=== PATIENT | male | born 1965 | race Caucasian/White ===

== ENCOUNTER → 2017-11-20 09:35 | Outpatient (CLI) | payer OTHER, SELFPAY ==
[2017-11-20 15:03] LABS: Absolute Lymphocyte Count 1.94 X10^3/ul (0.83-4.51); Absolute Neutrophil Count 2.5 X10^3/uL (2.0-7.7); Basophil# 0.02 X10^3/uL; Basophil% 0.4 % (0-1); Eosinophil# 0.08 X10^3/uL; Eosinophils% 1.6 % (0-5); Hematocrit 46.7 % (40-54); Hemoglobin 15.8 g/dl (13.0-16.5); Lymphocyte # 1.94 X10^3/ul (4.0); Lymphocyte % 39.2 % (19-41); Mean Corp Hgb Conc 33.8 g/gl (32-36); Mean Corpuscular Volume 88.6 fL (80-94); Mean Platelet Vol. 10.6 fl (6.2-12.0); Monocyte# 0.38 X10^3/uL; Monocyte% 7.7 % (0-10); Neutrophil # 2.53 X10^3/uL (2.7-7.7); Neutrophil % 51.1 % (47-70); POSITIVE COUNT NO; POSITIVE DIFFERENTIAL NO; POSITIVE MORPHOLOGY NO; Platelet Count 145 K/mm3 (150-450); RBC Distribution Width SD 45.5 fl (35.1-43.9); Red Blood Count 5.27 M/mm3 (4.6-6.2)
[2017-11-20 15:19] LABS: ALB/GLOB Ratio 1.3 RATIO (0.9-2.4); AST(SGOT) 17 U/L (15-37); Alanine Aminotransfer ALT/SGPT 33 U/L (16-61); Albumin, Serum 3.8 g/dL (3.2-5.0); Alkaline Phosphatase 45 U/L (45-117); Anion Gap 7 (5-15); BUN 17 mg/dL (7-18); BUN/Creat Ratio 13.2 RATIO (10-20); Calcium,Total 8.6 mg/dL (8.5-10.1); Chloride 107 mmol/L (98-107); Creatinine, Serum 1.29 mg/dL (0.70-1.30); EST Glomerular Filtration Rate 62 mL/min (>60); Est Glom Filt Rate - Afr Amer 75 mL/min (>60); Glucose 146 mg/dL (74-106); Potassium 3.9 mmol/L (3.5-5.1); Protein, Total 6.8 g/dL (6.4-8.2); Sodium Level 143 mmol/L (136-145); Thyroid Stim Hormone (TSH) 0.61 uIU/mL (0.358-3.74)
[2017-11-20 18:02] LABS: Hemoglobin A1c 5.6 % (4.2-6.3)
[2017-11-22 08:32] LABS: Hep C Antibodies <0.1 s/co ratio (0.0-0.9)
== END ==
PROVIDERS: Visit Provider Family Medicine Geriatric Medicine
DX: R53.83 Other fatigue (principal); E16.2 Hypoglycemia, unspecified; Z13.89 Encounter for screening for other disorder
CPT/HCPCS: 36415; 80053; 83036; 84443; 85025; 86803

== ENCOUNTER → 2018-01-12 16:24 | Outpatient (CLI) | payer SELFPAY ==
--- NOTE | 2018-01-12 16:24 | DT_ITS ---
This patient was seen during an EMR downtime January 12, 2018 - January 19, 2018. This patient may have a combination of paper and electronic documentation or all paper documentation. All documentation is viewable within the e-chart portion of [facility] for each patient visit.
--- NOTE | 2018-01-12 16:50 | RAD_ITS ---
STUDY: X-RAY - ORBITS REASON FOR EXAM: Male, 52 years old. This study is being performed as a clearance examination for exclusion of orbital metal, prior to the performance of an MRI examination. TECHNIQUE: 2 view(s) of the orbits were obtained. COMPARISON: None. FINDINGS: Normal bilateral orbits without a metallic orbital foreign body. Normal visualized facial bones. There is a 1.2 cm density appearing to be in the left frontal sinus, suggesting a sinolith. The soft tissue structures are unremarkable. RAD/Orbits for Foreign Body IMPRESSION: No demonstrated metallic orbital foreign body. The patient is cleared for an MRI examination. There is a 1.2 cm density appearing to be in the left frontal sinus, suggesting a sinolith. Electronically Signed: Michelle Lucia MD at 14:04 EDT , Service support ,
--- NOTE | 2018-01-12 17:30 | MRI_ITS ---
STUDY: MRI RIGHT SHOULDER REASON FOR EXAM: Male, 52 years old. Pain, limited range of motion TECHNIQUE: Standardized fat and water weighted pulse sequences were obtained in all 3 orthogonal planes. COMPARISON: None. FINDINGS: There is slight thickening with abnormal signal at the supraspinatus and subscapularis tendons (image 15, 14, 13, 12/20 coronal proton density fat sat, T2 fat sat, 13, 14, 13/22 axial proton density fat sat). There is a partial interstitial tear at the subscapularis tendon insertion. There is tear at the posterior inferior glenoid labrum (image 15, 16/22 axial proton density fat sat). There is chronic deformity at the posterior inferior glenoid labrum with mild subcortical cyst formation (image 13, 14, 15/22 axial proton density fat sat, T2). There are mild degenerative changes of the acromioclavicular joint (image 16/20 coronal T2 fat sat). Normal humeral head and visualized proximal humerus. Normal biceps labral complex. Normal intracapsular long biceps tendon. Normal capsulo- ligamentous complex. Normal rotator interval. Normal visualized coracohumeral and coracoacromial ligaments. Normal quadrilateral space. Normal axillary space. Normal deltoid muscle. Normal trapezius muscle. MRI/Upper Ext Joint Only(Routine) IMPRESSION: Rotator cuff tendinosis with partial tearing of the subscapularis tendon insertion Tear at the posterior inferior glenoid labrum associated with chronic deformity at the posterior inferior glenoid suggesting prior injury Mild osteoarthritis of the acromioclavicular joint Electronically Signed: Min Francisco MD at 11:01 EDT Tel , Service support ,
== END ==
PROVIDERS: Family Provider Family Medicine Geriatric Medicine; PCP Family Medicine Geriatric Medicine
DX: M19.011 Primary osteoarthritis, right shoulder (principal)
CPT/HCPCS: 70030; 73221

== ENCOUNTER → 2018-11-11 15:31 | Outpatient (CLI) | payer BC, SELFPAY ==
[2018-11-11 17:17] LABS: Absolute Lymphocyte Count 2.44 X10^3/ul (0.83-4.51); Absolute Neutrophil Count 4.3 X10^3/uL (2.0-7.7); Basophil# 0.02 X10^3/uL; Basophil% 0.3 % (0-1); Eosinophil# 0.05 X10^3/uL; Eosinophils% 0.7 % (0-5); Hematocrit 49.9 % (40-54); Hemoglobin 16.6 g/dl (13.0-16.5); Lymphocyte # 2.44 X10^3/ul (4.0); Lymphocyte % 32.4 % (19-41); Mean Corp Hgb Conc 33.3 g/gl (32-36); Mean Corpuscular Hgb 29.4 pg (27.0-32.0); Mean Corpuscular Volume 88.5 fL (80-94); Mean Platelet Vol. 10.8 fl (6.2-12.0); Monocyte% 9.3 % (0-10); Neutrophil # 4.32 X10^3/uL (2.7-7.7); Neutrophil % 57.2 % (47-70); Platelet Count 162 K/mm3 (150-450); RBC Distribution Width CV 15.1 % (11.6-14.6); RBC Distribution Width SD 49.2 fl (35.1-43.9); Red Blood Count 5.64 M/mm3 (4.6-6.2); White Blood Count 7.5 K/mm3 (4.4-11.0)
[2018-11-11 17:35] LABS: ALB/GLOB Ratio 1.3 RATIO (0.9-2.4); AST(SGOT) 21 U/L (15-37); Alanine Aminotransfer ALT/SGPT 37 U/L (16-61); Alkaline Phosphatase 48 U/L (45-117); Anion Gap 5 (5-15); BUN 20 mg/dL (7-18); BUN/Creat Ratio 16.9 RATIO (10-20); Calcium,Total 8.8 mg/dL (8.5-10.1); Chloride 105 mmol/L (98-107); Creatinine, Serum 1.18 mg/dL (0.70-1.30); EST Glomerular Filtration Rate 69 mL/min (>60); Est Glom Filt Rate - Afr Amer 83 mL/min (>60); Globulin 3.1 g/dL (2.2-4.2); Glucose 108 mg/dL (74-106); Potassium 4.8 mmol/L (3.5-5.1); Protein, Total 7.1 g/dL (6.4-8.2); Sodium Level 141 mmol/L (136-145)
[2018-11-11 17:58] LABS: POSITIVE COUNT NO; POSITIVE DIFFERENTIAL NO; POSITIVE MORPHOLOGY NO
== END ==
PROVIDERS: Family Provider Family Medicine Geriatric Medicine; PCP Family Medicine Geriatric Medicine; Visit Provider Family Medicine Geriatric Medicine
DX: E23.6 Other disorders of pituitary gland (principal); R53.83 Other fatigue
CPT/HCPCS: 36415; 80053; 84403; 84443; 85025

== ENCOUNTER → 2018-12-02 | Outpatient (CLI) | payer BC, SELFPAY ==
[2018-12-02 16:43] LABS: Absolute Lymphocyte Count 2.08 X10^3/ul (0.83-4.51); Absolute Neutrophil Count 2.9 X10^3/uL (2.0-7.7); Basophil# 0.01 X10^3/uL; Basophil% 0.2 % (0-1); Eosinophil# 0.07 X10^3/uL; Eosinophils% 1.3 % (0-5); Hematocrit 47.3 % (40-54); Hemoglobin 15.9 g/dl (13.0-16.5); Lymphocyte # 2.08 X10^3/ul (4.0); Lymphocyte % 37.6 % (19-41); Mean Corp Hgb Conc 33.6 g/gl (32-36); Mean Corpuscular Hgb 30.3 pg (27.0-32.0); Mean Corpuscular Volume 90.3 fL (80-94); Monocyte# 0.46 X10^3/uL; Monocyte% 8.3 % (0-10); Neutrophil % 52.4 % (47-70); POSITIVE COUNT NO; POSITIVE DIFFERENTIAL NO; POSITIVE MORPHOLOGY NO; Platelet Count 153 K/mm3 (150-450); RBC Distribution Width CV 15.3 % (11.6-14.6); RBC Distribution Width SD 50.5 fl (35.1-43.9); Red Blood Count 5.24 M/mm3 (4.6-6.2); White Blood Count 5.5 K/mm3 (4.4-11.0)
[2018-12-02 17:29] LABS: ALB/GLOB Ratio 1.3 RATIO (0.9-2.4); AST(SGOT) 18 U/L (15-37); Alanine Aminotransfer ALT/SGPT 32 U/L (16-61); Alkaline Phosphatase 41 U/L (45-117); Anion Gap 7 (5-15); BUN 21 mg/dL (7-18); BUN/Creat Ratio 18.3 RATIO (10-20); Calcium,Total 8.6 mg/dL (8.5-10.1); Chloride 107 mmol/L (98-107); Creatinine, Serum 1.15 mg/dL (0.70-1.30); EST Glomerular Filtration Rate 71 mL/min (>60); Est Glom Filt Rate - Afr Amer 85 mL/min (>60); Glucose 87 mg/dL (74-106); Potassium 4.1 mmol/L (3.5-5.1); Sodium Level 141 mmol/L (136-145); Thyroid Stim Hormone (TSH) 1.54 uIU/mL (0.358-3.74)
== END | disposition home or self-care (01) ==
LOC: POLAB3 15:50
PROVIDERS: Family Provider Family Medicine Geriatric Medicine; PCP Family Medicine Geriatric Medicine; Visit Provider Family Medicine Geriatric Medicine
DX: R53.83 Other fatigue (principal)
CPT/HCPCS: 36415; 80053; 84443; 85025

== ENCOUNTER → 2019-04-06 | Outpatient (CLI) | payer BC, SELFPAY ==
[2019-04-10 03:06] LABS: Lyme IgG P18 Ab Present (.); Lyme IgG P23 Ab Absent (.); Lyme IgG P28 Ab Absent (.); Lyme IgG P30 Ab Absent (.); Lyme IgG P39 Ab Absent (.); Lyme IgG P41 Ab Absent (.); Lyme IgG P45 Ab Absent (.); Lyme IgG P58 Ab Absent (.); Lyme IgG P66 Ab Absent (.); Lyme IgG P93 Ab Absent (.); Lyme IgM P23 Ab Absent (.); Lyme IgM P39 Ab Absent (.); Lyme IgM P41 Ab Absent (.)
[2019-04-10 09:30] LABS: Lyme IgG WB Interpretation Negative (.); Lyme IgM WB Interpretation Negative (.)
== END | disposition home or self-care (01) ==
LOC: POLAB3 15:03
PROVIDERS: Family Provider Family Medicine Geriatric Medicine; PCP Family Medicine Geriatric Medicine; Visit Provider Family Medicine Geriatric Medicine
DX: A69.20 Lyme disease, unspecified (principal)
CPT/HCPCS: 36415; 86617

== ENCOUNTER → 2019-12-06 | Outpatient (CLI) | payer BC, SELFPAY ==
[2019-12-06 15:00] LABS: Absolute Lymphocyte Count 2.15 X10^3/uL (0.83-4.51); Absolute Neutrophil Count 3.7 X10^3/uL (2.0-7.7); Basophil# 0.02 X10^3/uL; Basophil% 0.3 % (0-1); Eosinophil# 0.09 X10^3/uL; Eosinophils% 1.4 % (0-5); Hematocrit 49.4 % (40-54); Hemoglobin 16.1 g/dL (13.0-16.5); Lymphocyte # 2.15 X10^3/ul (4.0); Lymphocyte % 33.5 % (19-41); Mean Corp Hgb Conc 32.6 g/dL (32-36); Mean Corpuscular Hgb 29.4 pg (27.0-32.0); Mean Corpuscular Volume 90.1 fL (80-94); Mean Platelet Vol. 10.4 fl (6.2-12.0); Monocyte# 0.49 X10^3/uL; Monocyte% 7.6 % (0-10); NRBC Flagged by Analyzer 0 % (0-5); Neutrophil # 3.65 X10^3/uL (2.7-7.7); Neutrophil % 56.9 % (47-70); Platelet Count 153 K/mm3 (150-450); RBC Distribution Width SD 46.5 fl (35.1-43.9); Red Blood Count 5.48 M/mm3 (4.6-6.2); White Blood Count 6.4 K/mm3 (4.4-11.0)
[2019-12-06 15:44] LABS: ALB/GLOB Ratio 1.3 RATIO (0.9-2.4); AST(SGOT) 23 U/L (15-37); Alanine Aminotransfer ALT/SGPT 34 U/L (16-61); Albumin, Serum 4.1 g/dL (3.2-5.0); Alkaline Phosphatase 50 U/L (45-117); Anion Gap 5 (5-15); BUN 18 mg/dL (7-18); BUN/Creat Ratio 17.8 RATIO (10-20); Calcium,Total 8.8 mg/dL (8.5-10.1); Chloride 110 mmol/L (98-107); Creatinine, Serum 1.01 mg/dL (0.70-1.30); EST Glomerular Filtration Rate 82 mL/min (>60); Est Glom Filt Rate - Afr Amer 99 mL/min (>60); Globulin 3.1 g/dL (2.2-4.2); Glucose 115 mg/dL (74-106); PSA,Total - Annual Screen 2.36 ng/mL (0.00-4.00); Potassium 3.9 mmol/L (3.5-5.1); Protein, Total 7.2 g/dL (6.4-8.2); Sodium Level 142 mmol/L (136-145); Thyroid Stim Hormone (TSH) 1.61 uIU/mL (0.358-3.74)
== END | disposition home or self-care (01) ==
LOC: LAB 14:33
PROVIDERS: PCP Family Medicine Geriatric Medicine; Referring Provider Family Medicine Geriatric Medicine; Visit Provider Family Medicine Geriatric Medicine
DX: R53.83 Other fatigue (principal); Z12.5 Encounter for screening for malignant neoplasm of prostate
CPT/HCPCS: 36415; 80053; 84153; 84443; 85025; G0103

== ENCOUNTER 2020-02-17 11:55 | Emergency (ER) | payer BC, SELFPAY ==
[2020-02-17 11:57] VITALS: BP 118/77; PULSE 68; RESP 17; TEMP 36.1; O2SAT 96; BMI 27.9
[2020-02-17] MEDS: Diphth,Pertuss(Acell),Tet Vac 0.5 ML Vial IM (12:35)
[2020-02-17] MEDS: Bupivacaine Mpf 0.5% 30 ML VIAL INFILT (12:36)
--- NOTE | 2020-02-17 12:51 | ED.VIS.UPPEX ---
History of Present Illness Chief Complaint: Laceration Narrative: Patient presenting secondary to a left ring finger laceration. Patient reports that he fell, and his wedding ring caught on something causing a laceration to his ring finger. He denies any numbness or weakness. Bleeding was controlled with pressure. Patient's tetanus status is not up-to-date. Past Medical History - Allergies and Home Meds Allergies/Adverse Reactions: Allergies pseudoephedrine Allergy (Intermediate, Verified 11/25/19 08:01) hyperexcitability Primary Care Physician: Luis M Shin Chi, MD [Primary Care Provider] - Prior records reviewed: Yes Past Medical History: - - Depression, insomnia Smoking Status: Former smoker Review of Systems General: Denies: Fever Gastrointestinal: Denies: Nausea, Vomiting Musculoskeletal: Reports: Extremity Pain Skin: Reports: Wounds Neurological: Denies: Weakness, Numbness Hematologic: Denies: Easy bruising, Easy bleeding Physical Exam Vital Signs/Narrative: Vital Signs Temp Pulse Resp BP Pulse Ox 02/17/20 11:57 96.9 F L 68 17 118/77 96 Left Finger: - - Examination the patient's left hand shows laceration over the palmar surface of the proximal phalanx of the ring finger measuring about 2 cm. Normal flexion and extension of the finger, normal two-point discrimination distally, normal capillary refill. Bleeding is controlled. General: Well nourished, Well developed Head: Normocephalic Eyes: EOMI ENT: No Trauma Neck: Full ROM Cardiovascular: Regular rate, Regular rhythm Respiratory: No distress Skin: Normal color Neurological: Alert, Oriented x3 Psychological: Normal affect Diagnostic/Tx/Re-eval - Medical Decision Making Patient presented with a finger laceration. Tetanus status was updated. No signs of flexor tendon injury. Wound was dressed as noted in the procedure note. Patient will follow-up in 7 to 10 days for suture removal. Procedures - Lacerations No standard instances Comment: Finger was anesthetized via digital block utilizing bupivacaine. Wound was copiously irrigated with saline, was explored through full range of motion no evidence of violation of deep structures and no foreign material was noted. It was prepped and draped in sterile fashion. 4-0 nylon suture was utilized, #7 sutures were placed in a running fashion. I did have to trim a small amount of fat tissue that was still protruding from the wound. Patient tolerated this well. Patient will be placed in a dressing in a AlumaFoam splint. ED Disposition - Plan for ED Patient: Disposition: Home or Assisted Living Diagnosis: Laceration of left ring finger Instructions: ED Laceration Hand Referrals: Luis M Shin Chi, MD [Primary Care Provider] - 10 Day for suture removal
[2020-02-17 13:57] VITALS: RESP 18
== END 2020-02-17 13:58 | disposition home or self-care (01) ==
PROVIDERS: Emergency Provider Emergency Medicine; PCP Family Medicine Geriatric Medicine
DX: S61.215A Laceration without foreign body of left ring finger without damage to nail, initial encounter (principal); F32.9 Major depressive disorder, single episode, unspecified; Z23 Encounter for immunization; Z87.891 Personal history of nicotine dependence; Z79.899 Other long term (current) drug therapy; W26.8XXA Contact with other sharp object(s), not elsewhere classified, initial encounter; Y93.89 Activity, other specified; Y92.89 Other specified places as the place of occurrence of the external cause; Y99.8 Other external cause status
CPT/HCPCS: 12001; 90471; 90715; 99283

== ENCOUNTER 2020-03-24 06:00 | Day surgery (SDC) | payer BC, SELFPAY ==
--- NOTE | 2020-03-24 06:08 | PCM.HP.STD ---
Problem List (1) Anal fissure Status: Acute History of Present Illness Date of Admission: 03/24/20 The patient is a 54 year old M who has a history of rectal bleeding and suspected anal fissure. He is never previously had a colonoscopy. He was referred through the emergency room but because of COVID-19 pandemic endoscopic evaluation has been delayed. He complains of a very painful area posterior anus. He has been using diltiazem cream about every other day and that helps. He has not noticed any bleeding. He is not personally previously had a colonoscopy. He has no family history of colon cancer. Past Medical History Medical History: Medical History (Last Reviewed 11/25/19 @ 07:59 by Melly Poe) Anal fissure (Acute) K60.2 Rectal pain K62.89 Allergies pseudoephedrine Allergy (Intermediate, Verified 03/13/20 15:41) hyperexcitability Home Medications: Ambulatory Orders Medication Instructions Recorded multivitamin 1 cap PO DAILY 11/25/19 trazodone 150 mg tablet 150 mg PO QHS PRN 11/25/19 buPROPion SR [Wellbutrin SR (150mg 150 mg PO DAILY 02/17/20 tablets)] Omeprazole Magnesium [Prilosec Otc] 20 mg PO DAILY 03/13/20 Surgical History: Surgical History (Last Updated 11/25/19 @ 07:59 by Melly Poe) History of right inguinal hernia repair Z98.890, Z87.19 history anal fissurectomy Smoking Status: Never smoker Tobacco Use: Non-smoker Review of Systems Constitutional: Denies: Fever Cardiovascular: Denies: Chest Pain Respiratory: Denies: Cough, Shortness of Breath Gastrointestinal: Denies: Abdominal Pain Endocrine: Denies: Change in Body Habitus VTE Information - Inpt Only VTE Present on Admission: No - Physical Exam Vitals/I&O's: Body Mass Index (BMI) 27.9 General: Alert, Oriented x3, Cooperative, No apparent distress HEENT: Atraumatic Oral: Moist Mucosa Lungs: Clear to auscultation, Normal air movement Cardiovascular: Regular rate, Regular Rhythm Abdomen: Bowel Sounds Present, Soft, Non Tender Extremities: No Calf Tenderness Neurological: - - Normal cognition Psych/Mental Status: Normal Affect Assessment/Plan All Active Problems (Last Reviewed 11/25/19 @ 07:59 by Melly Poe) Anal fissure (Acute) I recommend to the patient a very careful inspection of the anal rectal area. Inspection will be used to investigate for possible anal fissure or fistula in ano. Recommend a colonoscopy with possible biopsy or polypectomy is indicated. We have discussed the technique, benefit, risk, alternatives. He has had an opportunity to ask and have questions answered. He presents via open access today. Alexander Lance M.D., F.A.C.S. Procedure Criteria Procedure Type: Elective COVID Risk Discussion: The surgeon/proceduralist and patient have discussed in detail the risk of exposure to and/or potential harm posed by the COVID-19 virus with having a surgery/procedure at this time versus the risk of delaying the surgery/procedure. It is not possible to know either the risk of delaying the surgery or procedure or chance of getting an infection with perfect accuracy, but a joint decision was made between the patient and the surgeon/proceduralist to proceed at this time with the scheduled surgery/procedure as indicated on the consent form.
[2020-03-24 06:18] VITALS: BP 135/90; PULSE 63; RESP 16; TEMP 36.1; O2SAT 99; BMI 26.6
--- NOTE | 2020-03-24 07:15 | COLBX_PTH ---
PATIENT: DELORIS HACKETT LOC: EN U#:[id number] AGE/SX: 54/M ROOM: RE03/24/[address]: Dr. Deloris Lance MD : 1965 BED: DIS: 03/24/2020 SPEC #: [id number] RECD: 03/24/20 09:36 STATUS: YVON ASHLEY #: [id number] RUFUS: 03/24/20 07:[address]: Deloris Lance DEPT: SURGICAL PATHOLOGY RECD BY: Manpreet Griffiths ENTERED: 03/24/20 10:10 SP TYPE: COLON BX OTHR DR: Dr. Luis M Shin MD Tissues: A - Rectum, NOS B - Rectum, NOS Procedures: Surgery Specimen Level IV HEADER OPERATION: Colonoscopy (MAC) PRE-OP DIAGNOSIS: Rectal bleed, suspected anal fissure TISSUE SUBMITTED: A - Proximal rectum polyp, B - Distal rectum biopsy MICROSCOPIC DIAGNOSIS A. Proximal rectum polyp, biopsy: Tubular adenoma with focal high grade dysplasia. See comment. B. Distal rectum, biopsy: Focal acute colitis. See comment. JOSEPH:maynor 03/27/20 COMMENT A. High grade dysplasia is noted at the luminal surface of the polyp. The resection margin is negative for high grade dysplastic changes. B. Cryptitis, crypt abscesses, glandular distortion or granulomas are not seen. Correlation with clinical, endoscopic findings and appropriate follow up are necessary. MICROSCOPIC DESCRIPTION Slides are reviewed. GROSS DESCRIPTION A - Received in fixative is one container labeled with the patient's name and designated proximal rectum polyp. The specimen consists of a piece of medrano-pink polyp measuring 1 x 0.5 x 0.3 cm. The specimen is bisected and submitted entirely in one cassette. B - Received in fixative is one container labeled with the patient's name and designated distal rectum biopsy. The specimen consists of two irregular fragments of light medrano soft tissue that in aggregate measure 0.6 x 0.3 x 0.1 cm. The specimen is totally submitted in one cassette. / JOSEPH:maynor 03/24/20 TC:1 CPT: 06229 x2
[2020-03-24 07:38] VITALS: BP 105/72; BP 135/90; PULSE 85; RESP 16; TEMP 36.7; O2SAT 96
[2020-03-24 07:40] VITALS: BP 109/72; BP 135/90; PULSE 80; RESP 16; O2SAT 96
--- NOTE | 2020-03-24 07:41 | OP.CCLET_ITS ---
03/24/2020 Luis M Shin MD [address] [place] [address] Re : Colonoscopy procedure for Alexander Templeton Dear Dr. Shin This procedure was performed on Tuesday, March 24, 2020. My impressions and recommendations are as follows: Impressions : - Non-thrombosed internal hemorrhoids and internal hemorrhoids that prolapse with straining, but spontaneously regress to the resting position (Grade II) found on digital rectal exam. - One 9 mm polyp in the rectum, removed using injection-lift and a hot snare. Resected and retrieved. - The examination was otherwise normal. Recommendations : - Discharge patient to home. - Resume previous diet. - Continue present medications. - Repeat colonoscopy in 5 years for surveillance based on pathology results. - Telephone my office for pathology results in 1 week. Careful inspection did not reveal anal fissure or fistula or mass or thrombosis. Mild erythema rectal mucosa biopsied Await path, might consider course of metronidazole My findings are described in the full procedure note, which is enclosed. If I can be of further assistance, please feel free to contact me at Doctor phone number(s): Work: . Sincerely, Alexander Lance MD 03/24/2020 7:41:03 AM This report has been signed electronically.
--- NOTE | 2020-03-24 07:41 | OP.COLON_ITS ---
Patient Name: Alexander Templeton Procedure Date: 03/24/2020 7:01 AM Date of : 1965 Age: 54 Procedure: Colonoscopy Indications: anal pain Providers: Alexander Lance MD Referring MD: Luis M Shin MD Medicines: See the Anesthesia note for documentation of the administered medications Patient Profile: Last Colonoscopy: none. The patient's first colonoscopy is today. Complications: No immediate complications. Procedure: Pre-Anesthesia Assessment: - Prior to the procedure, a History and Physical was performed, and patient medications and allergies were reviewed. The patient's tolerance of previous anesthesia was also reviewed. The risks and benefits of the procedure and the sedation options and risks were discussed with the patient. All questions were answered, and informed consent was obtained. Prior Anticoagulants: The patient has taken no previous anticoagulant or antiplatelet agents. ASA Grade Assessment: II - A patient with mild systemic disease. After reviewing the risks and benefits, the patient was deemed in satisfactory condition to undergo the procedure. After I obtained informed consent, the scope was passed under direct vision. Throughout the procedure, the patient's blood pressure, pulse, and oxygen saturations were monitored continuously. The pediatric colonoscope was introduced through the anus and advanced to the cecum, identified by appendiceal orifice and ileocecal valve. The colonoscopy was performed without difficulty. The patient tolerated the procedure well. The quality of the bowel preparation was good. The ileocecal valve and the appendiceal orifice were photographed. Scope In: 7:18:16 AM Scope Withdrawal Time 0 hours 11 minutes 40 seconds Scope Out: 7:33:57 AM Total Procedure Duration Time 0 hours 15 minutes 41 seconds Findings: The digital rectal exam findings include non-thrombosed internal hemorrhoids and internal hemorrhoids that prolapse with straining, but spontaneously regress to the resting position (Grade II). Pertinent negatives include normal sphincter tone, normal prostate (size, shape, and consistency) and no anal lesion or abnormality was detected. A 9 mm polyp was found in the rectum. The polyp was sessile. The polyp was removed with a saline injection-lift technique using a hot snare. Resection and retrieval were complete. The exam was otherwise without abnormality. A localized area of mildly erythematous mucosa was found in the rectum. Biopsies were taken with a cold forceps for histology. Impression: - Non-thrombosed internal hemorrhoids and internal hemorrhoids that prolapse with straining, but spontaneously regress to the resting position (Grade II) found on digital rectal exam. - One 9 mm polyp in the rectum, removed using injection-lift and a hot snare. Resected and retrieved. - The examination was otherwise normal. Recommendation: - Discharge patient to home. - Resume previous diet. - Continue present medications. - Repeat colonoscopy in 5 years for surveillance based on pathology results. - Telephone my office for pathology results in 1 week. Careful inspection did not reveal anal fissure or fistula or mass or thrombosis. Mild erythema rectal mucosa biopsied Await path, might consider course of metronidazole Procedure Code(s): --- Professional --- 14893, Colonoscopy, flexible; with removal of tumor(s), polyp(s), or other lesion(s) by snare technique 87010, Colonoscopy, flexible; with directed submucosal injection(s), any substance 63276, 59, Colonoscopy, flexible; with biopsy, single or multiple Diagnosis Code(s): --- Professional --- K64.1, Second degree hemorrhoids K62.1, Rectal polyp CPT copyright 2017 [employer]. All rights reserved. The codes documented in this report are preliminary and upon medical biller/coder review may be revised to meet current compliance requirements. Alexander Lance MD 03/24/2020 7:41:03 AM This report has been signed electronically. Number of Addenda: 0 Note Initiated On: 03/24/2020 7:01 AM
[2020-03-24 07:45] VITALS: BP 109/72; BP 135/90; PULSE 83; RESP 16; O2SAT 82
[2020-03-24 07:50] VITALS: BP 117/83; BP 120/77; BP 135/90; PULSE 80; PULSE 87; RESP 16; TEMP 36.3; O2SAT 98; O2SAT 99
[2020-03-24 08:10] VITALS: BP 135/90
== END 2020-03-24 08:12 | disposition home or self-care (01) ==
LOC: EN 06:05 → AC 06:06
PROVIDERS: Anesthesiology; PCP Family Medicine Geriatric Medicine; Referring Provider Family Medicine Geriatric Medicine; Visit Provider Surgery
PROC: 0DJD8ZZ Inspection of Lower Intestinal Tract, Via Natural or Artificial Opening Endoscopic (ICD-10-PCS; CPT 45378; principal; 2020-03-24 07:10)
DX: D12.8 Benign neoplasm of rectum (principal); K52.9 Noninfective gastroenteritis and colitis, unspecified; K64.1 Second degree hemorrhoids; K21.9 Gastro-esophageal reflux disease without esophagitis; Z11.59 Encounter for screening for other viral diseases; Z79.899 Other long term (current) drug therapy
CPT/HCPCS: 45380; 45381; 45385; 87635; 88305; 94799; J7120; A4216; J2405; U0003

== ENCOUNTER → 2020-12-06 14:58 | Outpatient (CLI) | payer BC, SELFPAY ==
[2020-12-06 16:38] LABS: Absolute Lymphocyte Count 1.98 X10^3/uL (0.83-4.51); Absolute Neutrophil Count 2.9 X10^3/uL (2.0-7.7); Basophil# 0.02 X10^3/uL; Basophil% 0.4 % (0-1); Eosinophil# 0.08 X10^3/uL; Eosinophils% 1.5 % (0-5); Hemoglobin 15.1 g/dL (13.0-16.5); Lymphocyte # 1.98 X10^3/ul (0.83-4.51); Lymphocyte % 36.9 % (19-41); Mean Corp Hgb Conc 32.1 g/dL (32-36); Mean Corpuscular Hgb 29.4 pg (27.0-32.0); Mean Corpuscular Volume 91.6 fL (80-94); Mean Platelet Vol. 10.5 fl (6.2-12.0); Monocyte# 0.42 X10^3/uL; Monocyte% 7.8 % (0-10); NRBC Flagged by Analyzer 0 % (0-5); Neutrophil # 2.86 X10^3/uL (2.7-7.7); Neutrophil % 53.2 % (47-70); Platelet Count 157 K/mm3 (150-450); RBC Distribution Width CV 14.1 % (11.6-14.6); Red Blood Count 5.13 M/mm3 (4.6-6.2); White Blood Count 5.4 K/mm3 (4.4-11.0)
[2020-12-06 16:59] LABS: ALB/GLOB Ratio 1.3 RATIO (0.9-2.4); AST(SGOT) 15 U/L (15-37); Alanine Aminotransfer ALT/SGPT 26 U/L (16-61); Albumin, Serum 3.6 g/dL (3.2-5.0); Alkaline Phosphatase 43 U/L (45-117); Anion Gap 4 (5-15); BUN 16 mg/dL (7-18); Calcium,Total 8.4 mg/dL (8.5-10.1); Chloride 108 mmol/L (98-107); Creatinine, Serum 1.07 mg/dL (0.70-1.30); EST Glomerular Filtration Rate 76 mL/min (>60); Est Glom Filt Rate - Afr Amer 92 mL/min (>60); Globulin 2.7 g/dL (2.2-4.2); Glucose 92 mg/dL (74-106); PSA,Total - Annual Screen 2.93 ng/mL (0.00-4.00); Potassium 3.8 mmol/L (3.5-5.1); Protein, Total 6.3 g/dL (6.4-8.2); Sodium Level 141 mmol/L (136-145); Thyroid Stim Hormone (TSH) 1.55 uIU/mL (0.358-3.74)
== END ==
PROVIDERS: PCP Family Medicine Geriatric Medicine; Visit Provider Family Medicine Geriatric Medicine
DX: R53.83 Other fatigue (principal); Z12.5 Encounter for screening for malignant neoplasm of prostate
CPT/HCPCS: 80053; 84153; 84443; 85025; G0103

== ENCOUNTER → 2021-12-10 | Outpatient (CLI) | payer BC, SELFPAY ==
[2021-12-10 15:42] LABS: Absolute Lymphocyte Count 1.92 X10^3/uL (0.83-4.51); Absolute Neutrophil Count 3.2 X10^3/uL (2.0-7.7); Basophil# 0.03 X10^3/uL; Basophil% 0.5 % (0-1); Eosinophil# 0.15 X10^3/uL; Eosinophils% 2.6 % (0-5); Hematocrit 45.3 % (40-54); Hemoglobin 15.2 g/dL (13.0-16.5); Lymphocyte # 1.92 X10^3/ul (0.83-4.51); Lymphocyte % 33.3 % (19-41); Mean Corp Hgb Conc 33.6 g/dL (32-36); Mean Corpuscular Hgb 30.3 pg (27.0-32.0); Mean Corpuscular Volume 90.4 fL (80-94); Mean Platelet Vol. 10.8 fl (6.2-12.0); Monocyte# 0.43 X10^3/uL; Monocyte% 7.5 % (0-10); NRBC Flagged by Analyzer 0 % (0-5); Neutrophil # 3.21 X10^3/uL (2.7-7.7); Neutrophil % 55.6 % (47-70); Platelet Count 142 K/mm3 (150-450); RBC Distribution Width CV 14.1 % (11.6-14.6); RBC Distribution Width SD 46.5 fl (35.1-43.9); Red Blood Count 5.01 M/mm3 (4.6-6.2); White Blood Count 5.8 K/mm3 (4.4-11.0)
[2021-12-10 16:02] LABS: ALB/GLOB Ratio 1.2 RATIO (0.9-2.4); AST(SGOT) 18 U/L (15-37); Alanine Aminotransfer ALT/SGPT 26 U/L (16-61); Albumin, Serum 3.7 g/dL (3.2-5.0); Alkaline Phosphatase 44 U/L (45-117); Anion Gap 4 (5-15); BUN 16 mg/dL (7-18); BUN/Creat Ratio 12.8 RATIO (10-20); Calcium,Total 8.4 mg/dL (8.5-10.1); Chloride 107 mmol/L (98-107); Creatinine, Serum 1.25 mg/dL (0.70-1.30); EST Glomerular Filtration Rate 63 mL/min (>60); Est Glom Filt Rate - Afr Amer 77 mL/min (>60); Glucose 99 mg/dL (74-106); Potassium 3.8 mmol/L (3.5-5.1); Protein, Total 6.7 g/dL (6.4-8.2); Sodium Level 141 mmol/L (136-145); Thyroid Stim Hormone (TSH) 1.56 uIU/mL (0.358-3.74)
== END | disposition home or self-care (01) ==
LOC: POLAB3 14:14
PROVIDERS: PCP Family Medicine Geriatric Medicine; Visit Provider Family Medicine Geriatric Medicine
DX: R53.83 Other fatigue (principal); Z12.5 Encounter for screening for malignant neoplasm of prostate
CPT/HCPCS: 36415; 80053; 84153; 84443; 85025; G0103